=== PATIENT | female | born 1965 | race Hispanic/Latino ===

== ENCOUNTER 2017-11-15 21:39 | Emergency (ER) | payer OTHER ==
--- NOTE | 2017-11-15 21:42 | ED CARDIAC/CP/PALPITATIONS ---
History of Present Illness General Chief Complaint: Chest Pain Stated Complaint: BIBA CP Source: patient, EMS Exam Limitations: no limitations Vital Signs & Intake/Output Vital Signs & Intake/Output Vital Signs Date Time Temp Pulse Resp B/P B/P Pulse O2 O2 Flow FiO2 Mean Ox Delivery Rate 11/16 0259 96.9 80 18 117/65 100 Room Air 11/16 0054 97.8 72 16 124/63 97 Room Air 11/15 2313 98.9 77 20 129/78 98 Room Air 11/15 2156 98.5 80 20 144/73 99 Room Air ED Intake and Output 11/16 0000 11/15 1200 Intake Total 100 Output Total Balance 100 Intake, IV 100 Allergies Coded Allergies: codeine (UNKNOWN 11/15/17) Reconcile Medications No Known Home Medications Triage Nurses Notes Reviewed? yes Onset: Abrupt Duration: minute(s): Timing: single episode today Quality/Severity: moderate Location: left chest Radiation: no radiation Activities at Onset: none Prior Chest Pain/Card Workup: stress test "scar" no reversible defect 2013 Aspirin Today: 325 mg x 1, provided by EMS Associated Symptoms: chest wall pain HPI: 52 yo in prior good health, h/o anxiety, presents with 45 minutes of left sided chest pain, non radiating, without diaphoresis, dyspnea , syncopal type symptoms. She states, "I felt chest pain and then the anxiety kicked in." She is presenty still with chest pain, "but feeling better." Past History Travel History Traveled to [place] past 21 day No Medical History Any Pertinent Medical History? see below for history Surgical History Surgical History: none Family History Hx Contributory? No Review of Systems Review of Systems Constitutional: Reports: no symptoms. EENTM: Reports: no symptoms. Respiratory: Reports: no symptoms. Cardiovascular: Reports: no symptoms. GI: Reports: no symptoms. Genitourinary: Reports: no symptoms. Musculoskeletal: Reports: no symptoms. Skin: Reports: no symptoms. Neurological/Psychological: Reports: no symptoms. Hematologic/Endocrine: Reports: no symptoms. Immunologic/Allergic: Reports: no symptoms. All Other Systems: Reviewed and Negative Physical Exam Physical Exam General Appearance: well developed/nourished, mild distress Head: atraumatic, normal appearance Eyes: Bilateral: normal appearance. Ears, Nose, Throat: normal pharynx, normal ENT inspection Neck: normal inspection, supple, full range of motion Respiratory: normal breath sounds, no respiratory distress, quiet respiration, lungs clear, left sided parasternal chest wall tenderness to palpation. Cardiovascular: regular rate/rhythm Gastrointestinal: normal bowel sounds, soft, non-tender, no organomegaly Back: normal inspection, normal range of motion Extremities: normal inspection, normal capillary refill, normal range of motion, no edema Neurologic/Psych: no motor/sensory deficits, awake, alert, oriented x 3 Skin: intact, normal color, warm/dry Core Measures ACS in differential dx? Yes No ASA d/t pt given asa via ems CVA/TIA Diagnosis No Sepsis Present: No Sepsis Focused Exam Completed? No Progress Differential Diagnosis: AMI, costochondritis, musculoskeletal pain Plan of Care: Orders Procedure Date/time Status TROPONIN LEVEL 11/16 44 Complete EKG 11/16 36 Active TROPONIN LEVEL 11/15 2140 Complete LIPASE 11/15 2140 Complete HEPATIC FUNCTION PANEL 11/15 2140 Complete D-DIMER 11/15 2140 Complete CBC WITHOUT DIFFERENTIAL 11/15 2140 Complete BASIC METABOLIC PANEL 11/15 2140 Complete AMYLASE 11/15 2140 Complete EKG 11/15 2140 Active Laboratory Tests 11/16/17 0040: Troponin I < 0.01 11/15/172156: Anion Gap 14, Estimated GFR > 60, BUN/Creatinine Ratio 15.0, Glucose 146 H, Calcium 9.3, Total Bilirubin 0.2, Direct Bilirubin 0.1, AST 24, ALT 33, Alkaline Phosphatase 85, Troponin I < 0.01, Total Protein 6.9, Albumin 3.9, Amylase 66, Lipase 41, D-Dimer High Sensitivty 280 H, CBC w Diff NO MAN DIFF REQ, RBC 3.74 L, MCV 75.3 L, MCH 23.9 L, MCHC 31.7 L, RDW 19.8 H, MPV 8.1, Gran % 60.1, Lymphocytes % 31.2, Monocytes % 5.3, Eosinophils % 2.9, Basophils % 0.5, Absolute Granulocytes 3.5, Absolute Lymphocytes 1.8, Absolute Monocytes 0.3, Absolute Eosinophils 0.2, Absolute Basophils 0 Diagnostic Imaging: Viewed by Me: Radiology Read. Discussed w/RAD: Radiology Read. Radiology Impression: PATIENT: JACKELYN SIMON PRESENT AGE: 52 PATIENT ACCOUNT NO: [id number] : 63 LOCATION: [facility] ORDERING PHYSICIAN: Dereck Ruiz MD SERVICE DATE: 11/15/17 EXAM TYPE: CAT - CTA CHEST-PULMONARY EMBOLISM EXAMINATION: CT ANGIOGRAM OF THE CHEST WITH AND WITHOUT CONTRAST (CT PULMONARY ANGIOGRAM FOR PE) CLINICAL INFORMATION: Chest pain COMPARISON: Radiograph from earlier today. TECHNIQUE: Prior to contrast administration, noncontrast localization images were obtained. Subsequently, multidetector volumetric imaging was performed from the thoracic inlet to below the diaphragms following the administration of 94 mL Optiray 320 intravenous contrast. No contrast reaction reported. Sagittal, coronal, and MIP oblique sagittal reformatted images were obtained on the CT workstation, uploaded to PACS, and reviewed. Total exam dose-length product 476 mGy-cm. FINDINGS: QUALITY OF STUDY/CONTRAST BOLUS: Satisfactory PULMONARY ARTERIES: No central or segmental pulmonary emboli. THORACIC AORTA: No aneurysm or dissection. LUNG: The central airways are patent. No focal or diffuse lung parenchymal abnormality. No suspicious pulmonary nodules are identified. PLEURA: No pleural effusion or pneumothorax. MEDIASTINUM: Normal heart size. No pericardial effusion. No hilar or mediastinal lymphadenopathy. No evidence of septal bowing or right heart strain. CHEST WALL/AXILLA: No axillary or internal mammary lymphadenopathy. OSSEOUS STRUCTURES: No acute or suspicious osseous abnormality. Mild degenerative changes in the spine. UPPER ABDOMEN: Cholecystectomy. No reflux of contrast into the hepatic veins to suggest elevated right heart pressures. IMPRESSION: No evidence of pulmonary embolism or other acute intrathoracic abnormality. VTE: negative DICTATED BY: Aidan Cho MD DATE/TIME DICTATED:11/15/172352 [employer] PORTAL CONSULTANT:MARTIN DATE/TIME TRANSCRIBED:11/15/172352 CONFIDENTIAL, DO NOT COPY WITHOUT APPROPRIATE AUTHORIZATION. <Electronically signed in Other Vendor System> SIGNED BY: Aidan Cho MD 11/15/172358 Initial ED EKG: nonspecific st changes, nsr. Repeat EKG: unchanged Departure Departure Disposition: HOME OR SELF CARE Condition: Stable Clinical Impression Primary Impression: Chest pain Secondary Impressions: Anxiety Departure Forms: Customer Survey General Discharge Information Prescriptions: Current Visit Scripts No Known Home Medications Comments 11/15/17, 22:15... pt with borderline +dimer, trop neg... discussed results with patient who is sleeping comfortably.... she is chest pain free... will check ct angio for PE, will check repeat trop/ekg. 11/16/17, 3:01am... trop/ekg benign x 2, ct angio negative for pe... pt slept comfortably in the ED... safe for discharge...pt will follow up with periodicals library assistant tomorrow. She has been chest pain free in the ED since administration of supportive medications. Critical Care Note Critical Care Note Critical Care Time: non-applicable
[2017-11-15 22:03] LABS: ABSOLUTE BASOPHIL COUNT 0 /CUMM (0.0-0.2); ABSOLUTE EOSINOPHIL COUNT 0.2 /CUMM (0.0-0.7); ABSOLUTE GRANULOCYTE CT 3.5 /CUMM (1.4-6.5); ABSOLUTE LYMPH COUNT 1.8 /CUMM (1.2-3.4); ABSOLUTE MONOCYTE COUNT 0.3 /CUMM (0.10-0.60); BASOPHIL % 0.5 % (0.0-2.0); EOSINOPHIL % 2.9 % (0-5); GRANULOCYTE % 60.1 % (42.2-75.2); HEMATOCRIT 28.2 % (37-47); MEAN CORPUSCULAR HGB 23.9 PG (27.0-31.0); MEAN CORPUSCULAR HGB CONC 31.7 G/DL (33.0-37.0); MEAN CORPUSCULAR VOLUME 75.3 FL (81.0-99.0); MEAN PLATELET VOLUME 8.1 FL (7.4-10.4); PLATELET COUNT 374 /CUMM (130-400); RBC DISTRIBUTION WIDTH 19.8 % (11.5-14.5); RED BLOOD CELL CT 3.74 /CUMM (4.20-5.40); WHITE BLOOD CELL COUNT 5.8 /CUMM (4.8-10.8)
--- NOTE | 2017-11-15 22:46 | RADIOLOGY REPORT ---
EXAMINATION: XR PORTABLE CHEST CLINICAL INFORMATION: Left-sided chest pain COMPARISON: None TECHNIQUE: Portable frontal view of the chest was obtained. FINDINGS: Large body habitus. The lungs are well-inflated and clear. Trachea is midline in position. No evidence of interstitial lung disease, focal consolidation, pneumothorax or pleural effusion. The cardiomediastinal silhouette and pulmonary lilian have normal size and contour. The visualized bones are unremarkable. The visualized upper abdomen is unremarkable. IMPRESSION: No acute cardiopulmonary findings.
--- NOTE | 2017-11-15 23:59 | CT SCAN REPORT ---
EXAMINATION: CT ANGIOGRAM OF THE CHEST WITH AND WITHOUT CONTRAST (CT PULMONARY ANGIOGRAM FOR PE) CLINICAL INFORMATION: Chest pain COMPARISON: Radiograph from earlier today. TECHNIQUE: Prior to contrast administration, noncontrast localization images were obtained. Subsequently, multidetector volumetric imaging was performed from the thoracic inlet to below the diaphragms following the administration of 94 mL Optiray 320 intravenous contrast. No contrast reaction reported. Sagittal, coronal, and MIP oblique sagittal reformatted images were obtained on the CT workstation, uploaded to PACS, and reviewed. Total exam dose-length product 476 mGy-cm. FINDINGS: QUALITY OF STUDY/CONTRAST BOLUS: Satisfactory PULMONARY ARTERIES: No central or segmental pulmonary emboli. THORACIC AORTA: No aneurysm or dissection. LUNG: The central airways are patent. No focal or diffuse lung parenchymal abnormality. No suspicious pulmonary nodules are identified. PLEURA: No pleural effusion or pneumothorax. MEDIASTINUM: Normal heart size. No pericardial effusion. No hilar or mediastinal lymphadenopathy. No evidence of septal bowing or right heart strain. CHEST WALL/AXILLA: No axillary or internal mammary lymphadenopathy. OSSEOUS STRUCTURES: No acute or suspicious osseous abnormality. Mild degenerative changes in the spine. UPPER ABDOMEN: Cholecystectomy. No reflux of contrast into the hepatic veins to suggest elevated right heart pressures. IMPRESSION: No evidence of pulmonary embolism or other acute intrathoracic abnormality. VTE: negative
[2017-11-16 02:59] VITALS: BP 117/65
== END 2017-11-16 03:06 ==
LOC: ERH 21:39
PROVIDERS: Pediatrics
DX: R07.9 Chest pain, unspecified (principal); F41.9 Anxiety disorder, unspecified
CPT/HCPCS: 71045; 93005; 93010; 96374; 96375; J0131; J1885